=== PATIENT | female | born 1955 | race Caucasian/White ===

== ENCOUNTER → 2016-11-10 | Outpatient (CLI) | payer BC | LOC: KOH-I 10:55 | DX: R74.0 Nonspecific elevation of levels of transaminase and lactic acid dehydrogenase [LDH] (principal); K76.0 Fatty (change of) liver, not elsewhere classified; Z90.49 Acquired absence of other specified parts of digestive tract | CPT/HCPCS: 76705 ==

== ENCOUNTER 2021-02-13 17:28 | Emergency (ER) | payer BC ==
[2021-02-13] MEDS ORDERED: HYDROCODON-ACE1 EAC4 PO (21:54)
== END 2021-02-13 22:14 | disposition home or self-care (01) ==
LOC: ER1 17:28
DX: S82.141A Displaced bicondylar fracture of right tibia, initial encounter for closed fracture (principal); I10 Essential (primary) hypertension; E78.5 Hyperlipidemia, unspecified; Z88.5 Allergy status to narcotic agent; Z85.3 Personal history of malignant neoplasm of breast; W11.XXXA Fall on and from ladder, initial encounter; Y92.009 Unspecified place in unspecified non-institutional (private) residence as the place of occurrence of the external cause
CPT/HCPCS: 29530; 72170; 73562; 73590; 73700; 96374; 96375; 99284; J1170; J2405

== ENCOUNTER 2021-02-20 06:53 | Day surgery (SDC) | payer BC ==
[~2021-02-20] VITALS: Ht 165.1 cm; Wt 83.9 kg
[~2021-02-20 06:53] MED LIST: ALEVE220 MG PO; ANASTROZOLE1 MG PO; CANDESARTAN-HC1 EAC1 PO; COREG3.125 MG PO; FLUTICASONE SPRAY; FOLIC ACID1 MG PO; HYDROCODON-ACE1 EAC4 PO; LEVOTHYROXINE125 MC1 PO; LIPITOR10 MG PO; OMEPRAZOLE20 M1 PO; PENTASA500 MG PO; VITAMIN D3125 MCG PO; VITAMIN E400 UNI4 PO
[2021-02-20 08:42] LABS: HEMOGLOBIN 9.6 gm/dl (12.3-15.3); RED BLOOD COUNT 3.12 M/UL (4.00-5.10); WHITE BLOOD COUNT 7.2 K/UL (4.5-11.0)
[2021-02-20] MEDS ORDERED: HYDROCODON-ACE1 EAC2 PO (15:19)
[2021-02-21] MEDS ORDERED: ELIQUIS2.5 MG PO (10:01)
[2021-02-21] MEDS ORDERED: ASPIRIN 325MG325 MG PO (10:07)
[2021-02-21 10:13] LABS: HEMOGLOBIN 8.8 gm/dl (12.3-15.3); RED BLOOD COUNT 2.86 M/UL (4.00-5.10)
[2021-02-21 10:14] LABS: WHITE BLOOD COUNT 10.8 K/UL (4.5-11.0)
== END 2021-02-21 11:23 | disposition home or self-care (01) ==
LOC: OR 06:53 → M/S 16:01 → OR 02-21 11:23
PROVIDERS: Orthopaedic Surgery
DX: S82.141A Displaced bicondylar fracture of right tibia, initial encounter for closed fracture (principal); G89.18 Other acute postprocedural pain; I10 Essential (primary) hypertension; E78.5 Hyperlipidemia, unspecified; K21.9 Gastro-esophageal reflux disease without esophagitis; E03.9 Hypothyroidism, unspecified; K50.90 Crohn's disease, unspecified, without complications; Z87.891 Personal history of nicotine dependence; Z88.5 Allergy status to narcotic agent; Z79.899 Other long term (current) drug therapy; W11.XXXA Fall on and from ladder, initial encounter
CPT/HCPCS: 36415; 36430; 71045; 73590; 76000; 80048; 85025; 85027; 90686; 93005; 97162; 97165; 97530-GP-CQ; C1713; J0690; J1100; J1170; J2001; J2250; J2405; J2704; J2795; J3010; J7120; Q9967

== ENCOUNTER 2021-10-30 19:41 | Emergency (ER) | payer BC ==
[~2021-10-30 19:41] MED LIST changes: +ASPIRIN 325MG325 MG PO; +ELIQUIS2.5 MG PO; +HYDROCODON-ACE1 EAC2 PO
[2021-10-31 00:45] LABS: HEMOGLOBIN 13.4 gm/dl (12.3-15.3); RED BLOOD COUNT 4.48 M/UL (4.00-5.10); WHITE BLOOD COUNT 10.7 K/UL (4.5-11.0)
[2021-10-31] MEDS ORDERED: ZOFRAN ODT 4 MG4 MG PO (03:17)
== END 2021-10-31 03:20 | disposition home or self-care (01) ==
LOC: ER1 19:41
PROVIDERS: Physician Assistant
DX: K50.90 Crohn's disease, unspecified, without complications (principal); I10 Essential (primary) hypertension; Z88.5 Allergy status to narcotic agent
CPT/HCPCS: 80053; 81001; 82150; 83605; 83690; 85025; 87086; 96374; 96375; 99284; J1100; J1885; J2405; Q9967

== ENCOUNTER → 2021-12-14 | Outpatient (CLI) | payer MEDICARE, BC ==
[~2021-12-14] MED LIST changes: +ZOFRAN ODT 4 MG4 MG PO
== END ==
LOC: KOH-I 13:17
DX: M54.30 Sciatica, unspecified side (principal); M47.816 Spondylosis without myelopathy or radiculopathy, lumbar region; M43.9 Deforming dorsopathy, unspecified
CPT/HCPCS: 72110